=== PATIENT | male | born 1980 ===

== ENCOUNTER 2019-02-23 14:01 | Emergency (ER) | payer SELFPAY ==
[~2019-02-23] VITALS: Ht 175.3 cm; Wt 109.1 kg
[2019-02-23 15:06] VITALS: BP 145/67
== END 2019-02-23 15:07 ==
LOC: ER 14:02
DX: S81.831A Puncture wound without foreign body, right lower leg, initial encounter (principal); W54.0XXA Bitten by dog, initial encounter; Y93.89 Activity, other specified; Y92.89 Other specified places as the place of occurrence of the external cause; Y99.8 Other external cause status
CPT/HCPCS: 73590; 99283